=== PATIENT | female | born 1960 | race Caucasian/White ===

== ENCOUNTER → 2016-10-12 | Outpatient (CLI) | payer OTHER ==
[~2016-10-12] MED LIST: ADV250INH INH; ADVI200C PO; AZIT250T3 PO; BUSP10TA PO; FOLI1TAB2 PO; LACT20EL PO; LISI10TA4 PO; LORA10TA2 PO; METO25TAB PO; PANT40TA2 PO; TYLE325T5 PO; VITMTA PO; XIFA550T PO
--- NOTE | 2016-10-12 11:08 | REP ---
RIGHT UPPER QUADRANT SONOGRAPHY: HISTORY: Alcoholic cirrhosis of the liver. COMPARISON STUDY: November 03, 2015. FINDINGS: Scanning through right upper quadrant of the abdomen demonstrates a normal sized thin-walled gallbladder with a non-shadowing 0.5 cm polyp on the non-dependent wall. There are foci of adenomyomatosis in the gallbladder wall. These appear to be unchanged. There is evidence of fatty infiltration of the liver. The common bile duct is at the upper range of normal measuring 0.66 cm. The main portal vein measures 14 mm in AP dimension. Its Doppler flow velocity is 29.6 cm/s. There is no evidence of ascites. No pancreatic abnormality is observed. No right renal abnormality is seen. The right kidney measures 10.5 x 5.6 x 5.4 cm. IMPRESSION: Small gallbladder polyp. Evidence of a mild adenomyomatosis of the gallbladder wall. No stone is seen. Evidence of fatty infiltration of the liver. No focal liver mass lesion noted. Signed by Karsten Jeronimo MD 10/12/2016 08:56 P
== END ==
LOC: M RAD 08:42
PROVIDERS: ATTEND Internal Medicine Gastroenterology
DX: K70.30 Alcoholic cirrhosis of liver without ascites (principal)

== ENCOUNTER 2016-10-27 03:19 | Inpatient (IN) | payer OTHER ==
[~2016-10-27] VITALS: Ht 162.6 cm; Wt 61.0 kg
[2016-10-27] MEDS ORDERED: MAALOX 30 ML SUSP *UDC PO PRN (07:45)
[2016-10-27] MEDS ORDERED: MOM 30ML SUSPENSION UDC PO PRN (07:45)
[2016-10-27] MEDS ORDERED: LOSA100T36 PO (07:59)
[2016-10-27] MEDS ORDERED: MAGN400T5 PO (07:59)
[2016-10-27] MEDS ORDERED: PROP1TAB29 PO (07:59)
[2016-10-27] MEDS ORDERED: OMEP40CA2 PO (07:59)
[2016-10-27] MEDS ORDERED: LABE20TAB PO (07:59)
[2016-10-27] MEDS ORDERED: NICO14DI20 TD (08:00)
[2016-10-27 09:51] VITALS: BP 135/85
[2016-10-27] MEDS ORDERED: LORATADINE 10 MG TAB PO PRN (10:45)
[2016-10-27] MEDS ORDERED: ALBUTEROL 90 MCG/ACT 8GM HFA INHALER INH PRN (10:45)
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
[2016-10-27] MEDS: MAGNESIUM OXIDE 400 MG TAB (MAG-OX) PO SCH (11:31)
[2016-10-27] MEDS: busPIRone 10 MG TAB PO SCH ×2 (11:31→15:57)
[2016-10-27] MEDS: OMEPRAZOLE 20 MG CAP PO SCH (11:31)
[2016-10-27] MEDS: ADVAIR DISKUS 250/50 INH PWD INH SCH ×2 (11:32→22:01)
[2016-10-27] MEDS: ACETAMINOPHEN TAB 650MG DOSE (2X325MG) PO PRN (12:46)
[2016-10-27] MEDS ORDERED: BACL10TA2 PO (13:59)
[2016-10-27] MEDS ORDERED: LORazepam 1 MG TAB PO PRN (14:00)
[2016-10-27] MEDS: rifAXIMin 550 MG TAB (XIFAXAN) PO SCH ×2 (15:56→22:03)
[2016-10-27] MEDS: SERTRALINE HCL 50 MG TAB PO SCH (15:57)
[2016-10-27] MEDS: LORazepam 1 MG TAB PO SCH ×2 (16:45→22:01)
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
[2016-10-27 18:00] VITALS: BP 136/85
[2016-10-27] MEDS: LOSARTAN 50 MG TAB PO SCH (22:02)
[2016-10-28 07:10] VITALS: BP 118/88
[2016-10-28] MEDS: OMEPRAZOLE 20 MG CAP PO SCH (08:17)
[2016-10-28] MEDS: MAGNESIUM OXIDE 400 MG TAB (MAG-OX) PO SCH (08:17)
[2016-10-28] MEDS: ADVAIR DISKUS 250/50 INH PWD INH SCH ×2 (08:18→22:04)
[2016-10-28] MEDS: rifAXIMin 550 MG TAB (XIFAXAN) PO SCH (08:18)
[2016-10-28] MEDS: SERTRALINE HCL 50 MG TAB PO SCH (08:18)
[2016-10-28] MEDS: LORazepam 1 MG TAB PO SCH ×3 (08:18→22:02)
[2016-10-28 09:02] LABS: BASO % 0.4 % (0.0-1.0); EOS # 0.2 K/mm3 (0.0-0.50); EOS % 2.9 % (0.0-3.0); LARGE UNSTAINED CELL # 0.1 K/mm3 (0.0-0.4); LARGE UNSTAINED CELL % 1.2 % (0.0-4.0); LYMPH # 2.1 K/mm3 (1.5-4.5); LYMPH % 28.1 % (24.0-44.0); MEAN CORPUSCULAR HEMOGLOBIN 32.1 pg (27.0-33.0); MEAN CORPUSCULAR HGB CONC 34.8 g/dl (32.0-36.5); MEAN CORPUSCULAR VOLUME 92.3 fl (80.0-96.0); MONO # 0.4 K/mm3 (0.0-0.8); MONO % 5.9 % (0.0-5.0); NEUTROPHILS # 4.3 K/mm3 (1.8-7.7); NEUTROPHILS % 61.4 % (36.0-66.0); PLATELET COUNT, AUTOMATED 174 k/mm3 (150-450); RED CELL DISTRIBUTION WIDTH 12.3 % (11.5-14.5)
[2016-10-28 09:16] LABS: ALBUMIN 3.7 GM/DL (3.2-5.2); ALBUMIN/GLOBULIN RATIO 1.03 (1.00-1.93); ALKALINE PHOSPHATASE 183 U/L (45-117); ALT/SGPT 25 U/L (12-78); ANION GAP 7 MEQ/L (8-16); AST/SGOT 22 U/L (15-37); BILIRUBIN,TOTAL 0.9 MG/DL (0.2-1.0); BLOOD UREA NITROGEN 12 MG/DL (7-18); CALCIUM LEVEL 8.6 MG/DL (8.5-10.1); CARBON DIOXIDE LEVEL 28 MEQ/L (21-32); CHLORIDE LEVEL 96 MEQ/L (98-107); CREATININE FOR GFR 0.83 MG/DL (0.55-1.02); GLOMERULAR FILTRATION RATE > 60.0 (>51); GLUCOSE, FASTING 119 MG/DL (70-105); POTASSIUM SERUM 4.2 MEQ/L (3.5-5.1); SODIUM LEVEL 131 MEQ/L (136-145); TOTAL PROTEIN 7.3 GM/DL (6.4-8.2)
--- NOTE | 2016-10-28 11:47 | IPNPDOC ---
Subjective Date Seen The patient was seen on 10/28/16. Subjective Chief Complaint/HPI The patient is a 56-year-old female admitted with a reason for visit of General Anxiety With Panic Attacks. Events since last encounter Have reconciled meds through Pharmacy and discussed with the Pt Records pending from Dr Srinivasan. Pulmonary: Denies: Cough, Dyspnea Cardiovascular: Denies: Chest Pain, Lt Headedness, Orthopnea, Palpitations, Paroxysmal Noc. Dyspnea Gastrointestinal: Denies: Abdominal Pain, Constipation, Diarrhea, Nausea, Vomiting Genitourinary: Denies: Dysuria, Frequency, Incontinence, Retention Objective Physical Examination General Exam: Positive: Alert Eye Exam: Positive: PERRLA ENT Exam: Positive: Atraumatic Chest Exam: Positive: Clear to auscultation, Normal air movement Heart Exam: Positive: Normal S1, Normal S2, Rate Normal, Regular Rhythm, Negative: Murmurs, Rubs Skin Exam: Positive: Nl turgor and temperature Assessment /Plan Problems (1) Hypertension Status: Chronic Problem Text: * Continue with Cozaar with hold parameters * BP controlled. * No additional changes at this time. (2) GERD (gastroesophageal reflux disease) Status: Chronic Problem Text: * Cont PPI (3) Asthma Status: Chronic Problem Text: * Advair/Albuterol prn (4) Allergic rhinitis Status: Chronic Problem Text: * Loratadine prn (5) Alcoholic cirrhosis Status: Chronic Response to Treatment: Stable Problem Text: * Xifaxan was apparently discontinued as per Dr Srinivasan at the end of September. * Records requested. * Ammonia WNL. * Monitor. Plan/VTE VTE Prophylaxis Ordered?: No (ambulatory) VS, I&O, 24H, [facility] Vital Signs/I&O Vital Signs Date Time Temp Pulse Resp B/P Pulse Ox O2 Delivery O2 Flow Rate FiO2 10/28/16 07:10 97.2 84 18 118/88 10/27/16 18:00 18 10/27/16 09:51 Room Air Laboratory Data 24H LABS Laboratory Tests 2 10/27/16 14:06: Ammonia 17 10/28/16 08:36: Blood Urea Nitrogen 12, Creatinine 0.83, Sodium Level 131L, Potassium Level 4.2 , Chloride Level 96L, Carbon Dioxide Level 28, Calcium Level 8.6, Aspartate Amino Transf (AST/SGOT) 22, Alanine Aminotransferase (ALT/SGPT) 25, Alkaline Phosphatase 183H, Total Bilirubin 0.9, Total Protein 7.3, Albumin 3.7, Albumin/ Globulin Ratio 1.03, Anion Gap 7L, White Blood Count 7.0, Red Blood Count 4.18, Hemoglobin 13.4, Hematocrit 38.5, Mean Corpuscular Volume 92.3, Mean Corpuscular Hemoglobin 32.1, Mean Corpuscular Hemoglobin Concent 34.8, Red Cell Distribution Width 12.3, Platelet Count 174, Neutrophils (%) (Auto) 61.4, Lymphocytes (%) (Auto) 28.1, Monocytes (%) (Auto) 5.9H, Eosinophils (%) (Auto) 2.9, Basophils (%) (Auto) 0.4, Neutrophils # (Auto) 4.3, Lymphocytes # (Auto) 2.1, Monocytes # (Auto) 0.4, Eosinophils # (Auto) 0.2, Basophils # (Auto) 0.0, Glomerular Filtration Rate > 60.0, Large Unclassified Cells # 0.1, Large Unclassified Cells % 1.2 CBC/BMP Laboratory Tests 10/28/16 08:36 Calcium Level 8.6, Aspartate Amino Transf (AST/SGOT) 22, Alanine Aminotransferase (ALT/SGPT) 25, Alkaline Phosphatase 183 H, Total Bilirubin 0.9 , Total Protein 7.3, Albumin 3.7, Red Blood Count 4.18, Mean Corpuscular Volume 92.3, Mean Corpuscular Hemoglobin 32.1, Mean Corpuscular Hemoglobin Concent 34.8 , Red Cell Distribution Width 12.3, Neutrophils (%) (Auto) 61.4, Lymphocytes (% ) (Auto) 28.1, Monocytes (%) (Auto) 5.9 H, Eosinophils (%) (Auto) 2.9, Basophils (%) (Auto) 0.4, Neutrophils # (Auto) 4.3, Lymphocytes # (Auto) 2.1, Monocytes # (Auto) 0.4, Eosinophils # (Auto) 0.2, Basophils # (Auto) 0.0 Kiya Benton Oct 28, 2016 11:47
[2016-10-28] MEDS ORDERED: NICOTINE 21MG/24HR 1 EA TRANSDERMAL TD ONE (17:00)
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
[2016-10-28 18:00] VITALS: BP 141/78
[2016-10-28] MEDS: traZODone 50 MG TAB PO PRN (22:02)
[2016-10-28] MEDS: LOSARTAN 50 MG TAB PO SCH (22:04)
[2016-10-29 06:32] VITALS: BP 142/98
[2016-10-29] MEDS: NICOTINE 21MG/24HR 1 EA TRANSDERMAL TD SCH (08:52)
[2016-10-29] MEDS: LORazepam 1 MG TAB PO SCH ×3 (08:52→21:34)
[2016-10-29] MEDS: ADVAIR DISKUS 250/50 INH PWD INH SCH ×2 (08:52→21:34)
[2016-10-29] MEDS: OMEPRAZOLE 20 MG CAP PO SCH (08:52)
[2016-10-29] MEDS: SERTRALINE HCL 50 MG TAB PO SCH (08:54)
[2016-10-29] MEDS ORDERED: INFLUENZA QUADRIVALENT PF VACCINE 0.5ML SYRINGE/VIAL (90686) IM ONE (09:00)
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
[2016-10-29] MEDS: ACETAMINOPHEN TAB 650MG DOSE (2X325MG) PO PRN (15:45)
[2016-10-29 18:00] VITALS: BP 140/90
[2016-10-29] MEDS: LOSARTAN 50 MG TAB PO SCH (21:37)
[2016-10-29] MEDS: traZODone 50 MG TAB PO PRN (21:38)
[2016-10-30] MEDS ORDERED: cloNIDine 0.1 MG TAB PO ONE (06:30)
[2016-10-30] MEDS ORDERED: hydrOXYzine 10 MG TAB PO PRN (06:30)
[2016-10-30 06:40] VITALS: BP 170/102
[2016-10-30] MEDS ORDERED: IBUPROFEN 800 MG TAB PO ONE (06:45)
[2016-10-30] MEDS: SERTRALINE HCL 50 MG TAB PO SCH (08:31)
[2016-10-30] MEDS: LORazepam 1 MG TAB PO SCH ×3 (08:31→21:20)
[2016-10-30] MEDS: ADVAIR DISKUS 250/50 INH PWD INH SCH ×2 (08:31→21:20)
[2016-10-30] MEDS: OMEPRAZOLE 20 MG CAP PO SCH (08:31)
[2016-10-30] MEDS: NICOTINE 21MG/24HR 1 EA TRANSDERMAL TD SCH (08:33)
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
[2016-10-30 09:30] VITALS: BP 133/91
[2016-10-30] MEDS ORDERED: LIDOCAINE 5% (LIDODERM) PATCH TD ONE (10:15)
[2016-10-30 18:00] VITALS: BP 123/89
[2016-10-30 18:44] VITALS: BP 133/91
[2016-10-30 21:24] VITALS: BP 140/90
[2016-10-30] MEDS: LOSARTAN 50 MG TAB PO SCH (21:24)
[2016-10-30] MEDS: ACETAMINOPHEN TAB 650MG DOSE (2X325MG) PO PRN (22:14)
[2016-10-31 06:21] VITALS: BP 153/85
[2016-10-31] MEDS: LORazepam 1 MG TAB PO SCH (08:20)
[2016-10-31] MEDS: OMEPRAZOLE 20 MG CAP PO SCH (08:20)
[2016-10-31] MEDS: SERTRALINE HCL 50 MG TAB PO SCH (08:20)
[2016-10-31] MEDS: NICOTINE 21MG/24HR 1 EA TRANSDERMAL TD SCH (08:20)
[2016-10-31] MEDS: ACETAMINOPHEN TAB 650MG DOSE (2X325MG) PO PRN (08:22)
[2016-10-31] MEDS: ADVAIR DISKUS 250/50 INH PWD INH SCH (08:22)
[2016-10-31] MEDS ORDERED: LORazepam 0.5 MG TAB PO STA (09:46)
[2016-10-31] MEDS ORDERED: SERT50TA PO (10:24)
[2016-10-31] MEDS ORDERED: HYDR10T PO (10:24)
[2016-10-31] MEDS ORDERED: TRAZO50TA PO (10:24)
[2016-10-31] MEDS ORDERED: CLAR1TAB2 PO (10:24)
[2016-10-31] MEDS ORDERED: MILKSUS PO (11:41)
[2016-10-31] MEDS ORDERED: MYLASUS16 PO (11:41)
--- NOTE | 2016-10-31 14:10 | DS.PDOC ---
[facility] Discharge Summary Discharge Summary DATE OF ADMISSION: Oct 27, 2016 at 07:32 DATE OF DISCHARGE: Oct 31, 2016 at 12:40 DISCHARGE DIAGNOSES: 1. Major Depressive Disorder 2. Substance Abuse (marijuana) REASON FOR ADMISSION: She was admitted on October 27 for having suicidal ideation , auditory command hallucinations that were telling her to kill herself nad severe depression CONSULTANTS INVOLVED: None for Psychiatry TREATMENT AND PROGRESS ON THE UNIT : She was treated with Zoloft 50 mgs. PO QD for depression, anxiety and PTSD because she had verbalized severe that she was exposed to very traumatic situations through her life. Receive treatment with Ativan 1 mg PO TID for anxiety/agitation because she had tested positive for amphetamines, that she denied using, (could have been laced to marijuana). Ativan was given to avoid her going through withdrawals. she also received Atarax for anxiety, trazodone for sleep. She had a good response for treatment HOSPITAL COURSE: Upon admission she was severely depressed, cried easily and she was having physical discomfort because she was experiencing muscle spasms and pain in her back. She verbalized having suicidal ideation and hearing voices that were telling her to kill herself. Her mood and affect were extremely depressed, her speech was slow, soft spoken and she didn't have circumstantiality or tangentiality. Her thought process was linear but her thought content was positive for command auditory hallucinations and suicidal ideation. Her judgment and insight were impaired. Her attention span and concentration were very poor, she was oriented to herself date and time, to people and place but not date and time. Her recent and remote memory were intact. DISCHARGE ASSESSMENT: Stable MENTAL STATUS EXAMINATION ON DISCHARGE: Patient is a 56-year old female, who is cooperative with interview, friendly, with good eye contact and [place]. Speech is normal. Language skills are fair. Thought processes including: Linear, coherent and goal oriented. Thought content: Negative for suicidal thoughts, homicidal thoughts, delusional thoughts and negative for auditory or visual hallucinations. Abstract reasoning, and computation: Fair. Description of associations: Low loosening of associations. Description of abnormal or psychotic thoughts: Not present Judgment: Improved. Insight: Improved. Orientation to oriented 3. Recent and remote memory: Intact. Attention span and concentration: Good. Language: Normal. Fund of knowledge: Full. Mood: "I feel very happy". Affect: Brighter, euthymic. MEDICATIONS ON DISCHARGE: -Zoloft 50 mg by mouth daily at bedtime for depression and anxiety -Desyrel 50 mg by mouth daily at bedtime for insomnia -Atarax 10 mg by mouth twice a day when necessary for anxiety PLAN/FOLLOWUP ARRANGEMENTS: . The amount of time spent in the coordination of care for this patient was approximately 30 minutes. Vital Signs/I&Os Vital Signs Date Time Temp Pulse Resp B/P Pulse Ox O2 Delivery O2 Flow Rate FiO2 10/31/16 06:21 97.0 86 20 153/85 10/30/16 18:44 18 Room Air Medications Scheduled Baclofen (Baclofen) 10 Mg Tab 10 MG PO DAILY SPASMS (Reported) Labetalol HCl (Labetalol HCl) 200 Mg Tab 200 MG PO BID HTN (Reported) Losartan Potassium (Losartan Potassium) 100 Mg Tab 100 MG PO QHS HTN (Reported) Omeprazole (Omeprazole) 40 Mg Cap 40 MG PO DAILY GERD (Reported) Propranolol HCl (Propranolol HCl) 20 Mg Tab 20 MG PO BID HTN (Reported) Salmeterol/Fluticasone (Advair Diskus 250-50 Mcg/Dose) 14 Puff/Inhaler Aerp 1 PUFF INH BID bronchitis (Reported) Sertraline Hcl (Sertraline HCl) 50 Mg Tab #10 50 MG PO DAILY MOOD Scheduled PRN Aluminum/Magnesium/Simeth (Mylanta 200-200-20 mg/5Ml) 1 Lizette Lizette 30 ML PO Q4HP PRN PRN HEARTBURN/INDIGESTION (Reported) Hydroxyzine HCl (Hydroxyzine HCl) 10 Mg Tab #10 10 MG PO BIDP PRN PRN ANXIETY/ AGITATION Loratadine (Claritin) 10 Mg Tab #10 10 MG PO DAILY PRN PRN ALLERGIES Milk Of Magnesia (Milk of Magnesia) 1,200 Mg/15 Ml Lizette 30 ML PO DAILYPRN PRN PRN CONSTIPATION (Reported) Trazodone HCl (Trazodone HCl) 50 Mg Tab #10 50 MG PO QHSP PRN PRN INSOMNIA Allergies Coded Allergies: No Known Allergies (Unverified , 11/02/15) BREE TINOCO MD Oct 31, 2016 14:10
== END 2016-10-31 12:40 | disposition home or self-care (01) | DRG 754 ==
LOC: EDBD 03:19 → M ED 04:56 → M ED INP 07:32 → M PSY 09:44
PROVIDERS: ADMIT Psychiatry & Neurology Child & Adolescent Psychiatry; ATTEND Psychiatry & Neurology Psychiatry
DX: F32.9 Major depressive disorder, single episode, unspecified (principal); J44.9 Chronic obstructive pulmonary disease, unspecified; R45.851 Suicidal ideations; R44.0 Auditory hallucinations; F12.10 Cannabis abuse, uncomplicated; F17.210 Nicotine dependence, cigarettes, uncomplicated; M54.5 Low back pain; F10.21 Alcohol dependence, in remission; J30.9 Allergic rhinitis, unspecified; K21.9 Gastro-esophageal reflux disease without esophagitis; I10 Essential (primary) hypertension; Z79.899 Other long term (current) drug therapy

== ENCOUNTER → 2017-03-30 | Outpatient (CLI) | payer OTHER ==
[~2017-03-30] MED LIST changes: +ACET50TAOT PO; +ALBU17IN INH; +AZIT-12 PO; -AZIT250T3 PO; +BACL10TA2 PO; +CLAR1TAB2 PO; -FOLI1TAB2 PO; +FOLI1TAB4 PO; +FOSA70TA PO; +HYDR-643 PO; +HYDR50TA70 PO; +LABE20TAB PO; +LOSA100T36 PO; +MAGN400T5 PO; +MILKSUS PO; +MULT1TAB10 PO; +MYLASUS16 PO; +NICO14DI20 TD; +NICO7DIS2 TD; +OMEP40CA2 PO; +PROP1TAB29 PO; +SERT50TA PO; +TRAZO50TA PO; +VITA100067 PO
--- NOTE | 2017-04-20 00:48 | ECWPNPC ---
PATIENT NAME: DARLENE BARNETT : 1960 GENDER: FEMALE VISIT DATE: 03/30/2017 DISCHARGE DATE: 03/30/17 1232 VISIT LOCKED DATE TIME: PHYSICIAN: GERSON CRUZ RESOURCE: GERSON CRUZ REASON FOR APPOINTMENT 1. LUMBAR CANAL STENOSIS HISTORY OF PRESENT ILLNESS NEW PATIENT CONSULT: 56 Y/O FEMALE REFERRED BY DR. AQUINO ,[facility] FOR CHRONIC LOW BACK PAIN.LOW BACK PAIN BEGAN IN 1986 AFTER HEAVY LIFTING A MOTION PICTURE COMMENTATOR.THIS WAS INTERMITTENT UNTIL 2015 WHEN IT BECAME MORE SEVERE.DESCRIBES PAIN CONSTANT ACHING AND SHARP PAIN.HAS TRIALED PRINTING PRESS OPERATOR WHICH WAS HELPFUL.PAIN IS AGGREVATED WITH PROLONGED STANDING AND WALKING.PAIN IS RELIEVED SOMEWHAT WITH SITTING.RATING PAIN VAS 7/10.DENIES RECENT FEVER,ILLNESS OR WEIGHT LOSS.DENIES BOWEL OR BLADDER INCONTINENCE. WHEN DID YOUR PAIN FIRST START? . BRIEFLY DESCRIBE HOW YOUR PAIN STARTED? . HOW DOES YOUR PAIN CHANGE WITH TIME? . DOES YOUR PAIN AWAKEN YOU FROM SLEEP? . HOW MANY HOURS OF SLEEP DO YOU NORMALLY GET? . ANY DIAGNOSTIC TESTING? . FACILITY WHERE TESTS WERE DONE? ____. PAIN TREATMENT TREATMENT YES CANCER HAVE YOU EVER HAD ANY TYPE OF CANCER?NO NO. PAIN SCREENING: PATIENT HAS A COMPLAINT OF ACUTE OR CHRONIC PAIN :YES FALL RISK SCREENING: SCREENING :NO FALLS IN THE PAST YEAR LARA INVENTORY: QUESTIONNAIRE ASSESSEDTBD SCORE VALUE CALCULATED TBD CURRENT MEDICATIONS TAKING ALENDRONATE SODIUM 70 MG TABLET 1 TABLET ORALLY WEEKLY TAKING CALCIUM 600 + D 600-200 MG-UNIT TABLET 1 TABLET WITH A MEAL ORALLY TWICE A DAY TAKING LABETALOL HCL 200 MG TABLET 1 TABLET ORALLY TWICE A DAY TAKING LOSARTAN POTASSIUM 100 MG TABLET 1 TABLET ORALLY ONCE A DAY TAKING NICOTINE 14 MG/24HR PATCH 24 HOUR 1 PATCH TO SKIN TRANSDERMAL ONCE A DAY TAKING VENTOLIN HFA 108 (90 BASE) MCG/ACT AEROSOL SOLUTION 2 PUFFS NEEDED INHALATION EVERY 4 HRS TAKING VITAMIN D3 1000 UNIT TABLET 2 TABLET ORALLY ONCE A DAY TAKING MULTIVITAMIN ADULTS - TABLET 1 TAB ORALLY DAILY TAKING ADVAIR DISKUS 250-50 MCG/DOSE AEROSOL POWDER BREATH ACTIVATED 1 PUFF INHALATION DAILY TAKING HYDROXYZINE HCL 50 MG TABLET 2 TABLETS ORALLY BEFORE BEDTIME TAKING LORATADINE 10 MG TABLET 1 TABLET ORALLY ONCE A DAY NEEDED TAKING OMEPRAZOLE 40 MG CAPSULE DELAYED RELEASE 1 CAPSULE ORALLY ONCE A DAY TAKING TYLENOL EXTRA STRENGTH 500 MG TABLET 2 TABLETS NEEDED ORALLY TWICE A DAY NEEDED MEDICATION LIST REVIEWED AND RECONCILED WITH THE PATIENT PAST MEDICAL HISTORY HYPERTENSION ASTHMA CIRRHOSIS OF LIVER ARTHRITIS NECK AND BACK PAIN ALLERGIES N.K.D.A. SURGICAL HISTORY TUBAL LIGATION 1982 EGD AND COLONOSCOPY 2015 FAMILY HISTORY FATHER: , DIAGNOSED WITH HEART DISEASE IN 3 MOTHER: 3 BROTHER(S) , 4 SISTER(S) . 2 SON(S) , 1 DAUGHTER(S) - HEALTHY. 1 SISTER KILLED IN FIRE1 SON IN CAR ACCIDENT. SOCIAL HISTORY GENERAL: TOBACCO USE ARE YOU A:CURRENT SMOKER HOW MANY CIGARETTES A DAY DO YOU SMOKE?6-10 PATIENT COUNSELED ON THE DANGERS OF TOBACCO USE AND URGED TO QUIT:03/30/2017 PATIENT IS CURRENTLY TRYING TO QUIT AND IS WEARING NICOTINE PATCHES ARE YOU INTERESTED IN QUITTING?READY TO QUIT COUNSELED THE PATIENT ON TOBACCO USE, CESSATION [id number]/21/2017 CURRENTLY IN PROCESS OF QUITTING RECREATIONAL DRUG USE DRUG USE?NO VOODOO [id number] [employer] LANGUAGE LANGUAGES SPOKEN:SLOVENIAN LEARNING BARRIERS / SPECIAL NEEDS BARRIERS TO LEARNING?NO HEARING IMPAIRED?NO VISION IMPAIRED?YES GLASSES FOR READING COGNITIVELY IMPAIRED?NO READINESS TO LEARN?YES LEARNING PREFERENCES?NO LEARNING CAPABILITIES PRESENT?YES EMOTIONAL BARRIERS?NO SPECIAL DEVICES?NO BI MANAGER NEEDED?NO PAIN CLINIC PFS, CLERGY, PUBLIC HEALTH REFERRALS PFS REFERRAL NEEDED?NO CLERGY REFERRAL NEEDED?NO PUBLIC HEALTH REFERRAL NEEDED?NO WAS THE PROVIDER NOTIFIED OF ANY PERTINENT INFO?NO HAS THE PATIENT BEEN EDUCATED REGARDING HIS/HER PLAN OF CARE?YES HAS THE PATIENT BEEN EDUCATED REGARDING PAIN, THE RISK FOR PAIN, THE IMPORTANCE OF EFFECTIVE PAIN MANAGEMENT, AND THE PAIN ASSESSMENT PROCESS?YES PATIENT: ____. [facility] DIRECTIVES HEALTH CARE PROXY?NO WOULD YOU LIKE MORE INFORMATION?NO DO YOU HAVE A DNR?NO WOULD YOU LIKE MORE INFORMATION?NO LIVING WILL?NO WOULD YOU LIKE MORE INFORMATION?NO POWER OF SCANNING COORDINATOR?NO WOULD YOU LIKE MORE INFORMATION?NO REVIEW OF SYSTEMS REVIEWED BY: PROVIDER: GERSON STARK . CONSTITUTIONAL: ANY CHANGE IN YOUR MEDICAL CONDITION? NO . CHILLS NO . FEVER NO . INFECTION: DO YOU HAVE NEW INFECTIONS? NO . DO YOU HAVE HISTORY OF MRSA? NO . MUSCULOSKELETAL: ANY NEW PATTERNS OF PAIN OR NUMBNESS? NO . SYTEMIC LUPUS NO . GASTROENTEROLOGY: ANY NEW CHANGE IN BOWEL CONTROL? NO . BARRETTS ESOPHAGUS NO . CIRRHOSIS YES . HEPATITIS NO . LIVER FAILURE NO . ACID REFLUX YES . UNEXPLAINED WEIGHT LOSS NO . GENITOURINARY: ANY NEW CHANGE IN BLADDER CONTROL? NO . IS THERE A CHANCE YOU COULD BE ? NO . HEMATOLOGY/LYMPH: DO YOU TAKE ANY BLOOD THINNERS? (FOR EXAMPLE- COUMADIN, PLAVIX, AGGRENOX, PLATEL, PRADAXA, OR XARELTO) NO . WHEN WAS YOUR LAST DOSE? DATE: TIME: . LOW PLATELET COUNT NO . SICKLE CELL DISEASE NO . VON WILLIEBRANDS NO . FACTOR V LEIDEN NO . THALLASEMIA NO . ANEMIA NO . EASY BRUISING NO . NEUROLOGY: HAVE YOU FALLEN IN THE PAST 6 MONTHS? NO . ANY NEW EXTREMITY NUMBNESS OR WEAKNESS? NO . HEAD INJURY NO . DEMENTIA NO . CEREBRAL PALSY NO . MULTIPLE SCLEROSIS NO . DIZZINESS NO . HEADACHE NO . STROKES NO . VERTIGO NO . CARDIOLOGY: DO YOU HAVE A PACEMAKER OR DEFIBRILLATOR? NO . ANGINA NO . HEART ATTACK NO . HEART SURGERY NO . CONGESTIVE HEART FAILURE/FLUID OVERLOAD NO . CHEST PAIN NO . HIGH BLOOD PRESSURE ON MEDICATION(S) . IRREGULAR HEART BEAT NO . RESPIRATORY: HAVE YOU BEEN SICK IN THE PAST WEEK? NO . FEVER NO . FLU LIKE SYMPTOMS? NO . CPAP NO . BYPAP NO . ASTHMA YES . EMPHYSEMA NO . CHRONIC LUNG DISEASES NO . SHORTNESS OF BREATH ON EXERTION YES . DO YOU USE ANY TYPE OF TOBACCO (SMOKE, SMOKELESS, CHEW)? YES . COUGH NO . SNORING NO . INTEGUMENTARY: DO YOU HAVE ANY RASHES OR OPEN SORES? NO . ALLERGIC/IMMUNO: ARE YOU ALLERGIC TO SHELLFISH OR IV DYE? NO . ANY NEW ALLERGIES? NO . PSYCHIATRIC: DO YOU HAVE THOUGHTS OF HURTING YOURSELF OR SOMEONE ELSE? NO . ARE YOU ABUSED, NEGLECTED, OR IN AN UNSAFE ENVIRONMENT? NO . ENDOCRINOLOGY: ARE YOU DIABETIC? NO . THYROID DISORDER NO . OTHER: DO YOU NEED ANY PRESCRIPTIONS? NO . IF YES, PLEASE LIST: ____ . ANY NEW PROBLEMS WITH YOUR MEDICATIONS? NO . WHEN DID YOU LAST EAT? ____ . WHEN DID YOU LAST DRINK? ____ . WHAT DID YOU LAST DRINK? ____ . NAME OF PERSON DRIVING YOU HOME? ____ . DO YOU HAVE ANY OTHER QUESTIONS OR CONCERNS NO . VITAL SIGNS WT 148 LBS, HT 51 IN, BMI 40.00 INDEX, BP 180/114 MM HG, REPEAT BP 160/98 MANUAL LEFT ARM, HR 71 /MIN, RR 18 /MIN, TEMP 98.1 F, OXYGEN SAT % 94%, NA INITIALS AW 1119. EXAMINATION GENERAL EXAMINATION: GENERAL APPEARANCE:COMFORTABLE. PSYCHAFFECT NORMAL. NECK:TRACHEA MIDLINE. NO CERVICAL OR SUPRACLAVICULAR LYMPHADENOPATHY NOTED. LUNGS:LUNG CAMARA ARE CLEAR TO AUSCULTATION BILATERALLY. GOOD MOVEMENT OF AIR. HEART:S1, S2 IN A REGULAR RATE AND RHYTHM. NO SIGNIFICANT MURMURS, RUBS OR GALLOPS NOTED. ABDOMEN:SOFT, NON-TENDER, NO ORGANOMEGALY, BOWEL SOUNDS ARE NORMAL. LUMBAR SACRAL SPINEMUSCLE STRENGTH TESTING 5/5 BILATERAL, PALPATION: NEGATIVE FOR PAIN OVER L/S SPINE. NEGATIVE FOR PAIN OVER L/S PARASPINALS.SPECIFIC POINT TENDERNESS OVER BILATERAL SIJ.. DIAGNOSTIC TESTS REVIEWEDMRI L/S [id number]-REVIEWED. 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 SIJ, PATIENT WAS ADVISED TO START A WALKING PROGRAM TO STRENGTHEN LUMBAR PARASPINAL MUSCLES AND IMPROVE MOBILITY. THEY WERE ADVISED THAT THIS WILL IMPROVE WEIGHT LOSS AND ALSO DEPRESSION/FIBROMYALGIA SYMPTOMS. ADVISED TO WALK 10 MINUTES EVERY OTHER DAY ON A FLAT SURFACE. EMPHASIZED THE IMPORTANCE OF DOING THIS CONSISTANTLY AND NOT SPORATICALLY TO AVOID INJURY. STRONG ADVISED NOT TO DO MORE THAN 10 MINUTES EVERY OTHER DSY FOR THE FIRST 4 WEEKS. PREVENTIVE MEDICINE PAIN CLINIC TEACHING: PROCEDURE TEACHING PRE-PROCEDURE TEACHING DONE. ADDITIONAL INFORMATION GIVEN. QUESTIONS ANSWERED AND PATIENT VERBALIZES UNDERSTANDING. PATIENT'S DAUGHTER ALSO VERBALIZES UNDERSTANDING.. PROCEDURE CODES FA211 ESTABILISHED PATIENT [facility] CHARGE DISPOSITION & COMMUNICATION FOLLOW UP 2WK POST (REASON: BILAT. SIJ) ELECTRONICALLY SIGNED BY MI BERGERON ON 04/19/2017 AT 07:51 PM EDT DISCLAIMER : THIS IS A VISIT SUMMARY EXTRACTED FROM THE [employer] CHART. IT IS NOT A COPY OF THE [employer] PROGRESS NOTE. SHANTELLE
== END ==
LOC: M PAIN 11:00
PROVIDERS: ATTEND Nurse Practitioner Family
DX: M46.1 Sacroiliitis, not elsewhere classified (principal); M12.88 Other specific arthropathies, not elsewhere classified, other specified site; M54.5 Low back pain; G89.29 Other chronic pain; I10 Essential (primary) hypertension; J45.909 Unspecified asthma, uncomplicated; F17.210 Nicotine dependence, cigarettes, uncomplicated

== ENCOUNTER → 2017-04-04 | Outpatient (CLI) | payer OTHER ==
[2017-04-04 15:21] LABS: BASO % 0.6 % (0.0-1.0); EOS # 0.3 10^3/uL (0.0-0.50); IMMATURE GRANULOCYTE % 0.3 % (0-0); LYMPH # 2.4 10^3/uL (1.5-4.5); LYMPH % 37.7 % (24.0-44.0); MEAN CORPUSCULAR HEMOGLOBIN 31.6 pg (27.0-33.0); MEAN CORPUSCULAR HGB CONC 35.5 g/dl (32.0-36.5); MEAN CORPUSCULAR VOLUME 89.2 fl (80.0-96.0); MONO # 0.7 10^3/uL (0.0-0.8); MONO % 11.1 % (0.0-5.0); NEUTROPHILS % 46.3 % (36.0-66.0); PLATELET COUNT, AUTOMATED 174 10^3/uL (150-450); RED CELL DISTRIBUTION WIDTH 11.6 % (11.5-14.5); WHITE BLOOD COUNT 6.5 10^3/uL (4.0-10.0)
[2017-04-04 15:38] LABS: INR 1.02
[2017-04-04 16:40] LABS: ALBUMIN 3.9 GM/DL (3.2-5.2); ALBUMIN/GLOBULIN RATIO 1.08 (1.00-1.93); ALKALINE PHOSPHATASE 144 U/L (45-117); ALT/SGPT 21 U/L (12-78); ANION GAP 8 MEQ/L (8-16); AST/SGOT 19 U/L (15-37); BILIRUBIN,TOTAL 0.7 MG/DL (0.2-1.0); BLOOD UREA NITROGEN 11 MG/DL (7-18); CALCIUM LEVEL 8.7 MG/DL (8.5-10.1); CARBON DIOXIDE LEVEL 29 MEQ/L (21-32); CHLORIDE LEVEL 94 MEQ/L (98-107); CREATININE FOR GFR 0.74 MG/DL (0.55-1.02); GLOMERULAR FILTRATION RATE > 60.0 (>51); GLUCOSE, FASTING 109 MG/DL (70-105); POTASSIUM SERUM 4.5 MEQ/L (3.5-5.1); SODIUM LEVEL 131 MEQ/L (136-145); TOTAL PROTEIN 7.5 GM/DL (6.4-8.2)
== END ==
LOC: M LAB 14:32
PROVIDERS: ATTEND Internal Medicine Gastroenterology
DX: K70.30 Alcoholic cirrhosis of liver without ascites (principal)

== ENCOUNTER → 2017-04-06 | Outpatient (CLI) | payer OTHER ==
--- NOTE | 2017-04-07 02:24 | REP ---
Clinical: Cirrhosis. Comparison: 10/12/2016. Technique: Real time quiroz scale ultrasound examination using curved array transducer. Findings: The liver demonstrates a coarsened echotexture with nodular contour consistent with cirrhosis. No focal hepatic lesion identified. Visualized portions of the pancreas are unremarkable. The gallbladder is normal and without gallstones, wall thickening, or pericholecystic fluid. Previously identified small gallbladder polyp and benign adenomyomatosis are not well appreciated on current examination. There is no evidence for biliary ductal dilatation and the common bile duct measures 4.9 mm diameter. The right kidney is normal in reniform shape without hydronephrosis and measures 10.2 x 6.3 x 5.4 cm. No ascites. Impression: Coarsened hepatic echotexture consistent with cirrhosis and hepatocellular disease. Signed by Meño Gibson MD 04/07/2017 02:16 A
== END ==
LOC: M RAD 07:58
PROVIDERS: ATTEND Internal Medicine Gastroenterology
DX: K74.60 Unspecified cirrhosis of liver (principal)

== ENCOUNTER 2017-04-17 11:59 | Outpatient (CLI) | payer OTHER ==
[~2017-04-17] VITALS: Ht 154.9 cm; Wt 66.7 kg
[2017-04-17] MEDS ORDERED: NS 1,000 ML IV ONE (12:15)
[2017-04-17] MEDS ORDERED: PROPOFOL 200 MG/20 ML VIAL As Ordered ONE (13:07)
--- NOTE | 2017-04-17 13:35 | ROOR ---
Patient Name: Tracy Frey Procedure Date: 04/17/2017 1:16 PM Date of : 1960 Age: 56 Room: [facility] Gender: Female Note Status: Finalized Procedure: Upper GI endoscopy Indications: Cirrhosis rule out esophageal varices Providers: Beau SRINIVASAN MD Referring MD: FRANCISCO JAVIER Naranjo, Trixie Sykes MD Requesting Provider: Medicines: Monitored Anesthesia Care Complications: No immediate complications. Procedure: Pre-Anesthesia Assessment: - The heart rate, respiratory rate, oxygen saturations, blood pressure, adequacy of pulmonary ventilation, and response to care were monitored throughout the procedure. The Endoscope was introduced through the mouth, and advanced to the second part of duodenum. The upper GI endoscopy was accomplished without difficulty. The patient tolerated the procedure well. Findings: The examined esophagus was normal. A medium-sized hiatal hernia was present. The entire examined stomach was normal. The examined duodenum was normal. Impression: - Normal esophagus. - No esophageal varices seen. - Medium-sized hiatal hernia. - Normal stomach. - No gastric varices seen. - Normal examined duodenum. - No specimens collected. Recommendation: - Observe patient's clinical course. - Continue present medications. - Repeat upper endoscopy in 1 year for surveillance. - Return to my office in 6 months. Beau Srinivasan MD Beau SRINIVASAN MD 04/17/2017 1:34:27 PM This report has been signed electronically. Number of Addenda: 0 Note Initiated On: 04/17/2017 1:16 PM Estimated Blood Loss: Estimated blood loss: none.
[2017-04-17 13:44] VITALS: BP 144/102
== END 2017-04-17 13:58 | disposition home or self-care (01) ==
LOC: M OPP 11:59
PROVIDERS: ATTEND Internal Medicine Gastroenterology
DX: K74.60 Unspecified cirrhosis of liver (principal); K44.9 Diaphragmatic hernia without obstruction or gangrene; I10 Essential (primary) hypertension; R12 Heartburn; K22.8 Other specified diseases of esophagus; F41.9 Anxiety disorder, unspecified; R06.02 Shortness of breath; M54.9 Dorsalgia, unspecified; M81.0 Age-related osteoporosis without current pathological fracture; Z78.0 Asymptomatic menopausal state; J45.909 Unspecified asthma, uncomplicated; J44.9 Chronic obstructive pulmonary disease, unspecified; F17.210 Nicotine dependence, cigarettes, uncomplicated; Z79.899 Other long term (current) drug therapy

== ENCOUNTER → 2017-05-17 | Outpatient (CLI) | payer OTHER ==
--- NOTE | 2017-06-06 01:23 | ECWPNPC ---
PATIENT NAME: DARLENE BARNETT : 1960 GENDER: FEMALE VISIT DATE: 05/17/2017 DISCHARGE DATE: 05/17/17 1427 VISIT LOCKED DATE TIME: PHYSICIAN: GERSON CRUZ RESOURCE: GERSON CRUZ REASON FOR APPOINTMENT 1. REEVALUATE AFTER FALL HISTORY OF PRESENT ILLNESS HISTORY OF PRESENT ILLNESS: HERE FOR F/U OF CHRONIC LOW BACK PAIN.FELL ON 04-21-17 AND WAS HOSPITALIZED FOR OBSERVATION X 24H WITHOUT ANY ABNORMALITIES PER PATIENT.WAS SEEN BY PRIMARY CARE AFTER HOSPITALIZATION WITHOUT ANY CHANGES.DENIES INCREASE IN LOW BACK PAIN SINCE FALL.WAS SCHEDULED FOR BILATERAL SIJ AND HAD TO CANCEL DUE TO FALL AND HOSPITALIZATION.RATING LBP /RIGHT LEG PAIN 6/10 VAS.DESCRIBES PAIN INTERMITTENT SHARP AND ACHING. PAIN THE PATIENT DESCRIBES THE PAIN... FALL RISK SCREENING: SCREENING :NO FALLS IN THE PAST YEAR CURRENT MEDICATIONS TAKING ALENDRONATE SODIUM 70 MG TABLET 1 TABLET ORALLY WEEKLY TAKING CALCIUM 600 + D 600-200 MG-UNIT TABLET 1 TABLET WITH A MEAL ORALLY TWICE A DAY TAKING LABETALOL HCL 200 MG TABLET 1 TABLET ORALLY TWICE A DAY TAKING LOSARTAN POTASSIUM 100 MG TABLET 1 TABLET ORALLY ONCE A DAY TAKING NICOTINE 14 MG/24HR PATCH 24 HOUR 1 PATCH TO SKIN TRANSDERMAL ONCE A DAY TAKING VENTOLIN HFA 108 (90 BASE) MCG/ACT AEROSOL SOLUTION 2 PUFFS NEEDED INHALATION EVERY 4 HRS TAKING VITAMIN D3 1000 UNIT TABLET 2 TABLET ORALLY ONCE A DAY TAKING MULTIVITAMIN ADULTS - TABLET 1 TAB ORALLY DAILY TAKING HYDROXYZINE HCL 50 MG TABLET 2 TABLETS ORALLY BEFORE BEDTIME TAKING LORATADINE 10 MG TABLET 1 TABLET ORALLY ONCE A DAY NEEDED TAKING OMEPRAZOLE 40 MG CAPSULE DELAYED RELEASE 1 CAPSULE ORALLY ONCE A DAY TAKING TYLENOL EXTRA STRENGTH 500 MG TABLET 2 TABLETS NEEDED ORALLY TWICE A DAY NEEDED TAKING CELEXA 40 MG TABLET 0.5 TABLET ORALLY ONCE A DAY NOT-TAKING ADVAIR DISKUS 250-50 MCG/DOSE AEROSOL POWDER BREATH ACTIVATED 1 PUFF INHALATION DAILY MEDICATION LIST REVIEWED AND RECONCILED WITH THE PATIENT PAST MEDICAL HISTORY HYPERTENSION ASTHMA CIRRHOSIS OF LIVER ARTHRITIS NECK AND BACK PAIN ALLERGIES NO[ALLERGIES VERIFIED] REVIEW OF SYSTEMS REVIEWED BY: PROVIDER: GERSON STARK . CONSTITUTIONAL: ANY CHANGE IN YOUR MEDICAL CONDITION? NO . CHILLS NO . FEVER NO . INFECTION: DO YOU HAVE NEW INFECTIONS? NO . DO YOU HAVE HISTORY OF MRSA? NO . MUSCULOSKELETAL: ANY NEW PATTERNS OF PAIN OR NUMBNESS? NO . GASTROENTEROLOGY: ANY NEW CHANGE IN BOWEL CONTROL? NO . GENITOURINARY: ANY NEW CHANGE IN BLADDER CONTROL? NO . IS THERE A CHANCE YOU COULD BE ? NO . HEMATOLOGY/LYMPH: DO YOU TAKE ANY BLOOD THINNERS? (FOR EXAMPLE- COUMADIN, PLAVIX, AGGRENOX, PLATEL, PRADAXA, OR XARELTO) NO . WHEN WAS YOUR LAST DOSE? DATE: TIME: . NEUROLOGY: HAVE YOU FALLEN IN THE PAST 6 MONTHS? 10-13 HAD A FALL AT HOME STITCHES TO THE LIP AND BROKE DENTURES . ANY NEW EXTREMITY NUMBNESS OR WEAKNESS? NO . CARDIOLOGY: DO YOU HAVE A PACEMAKER OR DEFIBRILLATOR? NO . RESPIRATORY: HAVE YOU BEEN SICK IN THE PAST WEEK? NO . FEVER NO . FLU LIKE SYMPTOMS? NO . COUGH NO . INTEGUMENTARY: DO YOU HAVE ANY RASHES OR OPEN SORES? NO . ALLERGIC/IMMUNO: ARE YOU ALLERGIC TO SHELLFISH OR IV DYE? NO . ANY NEW ALLERGIES? NO . PSYCHIATRIC: DO YOU HAVE THOUGHTS OF HURTING YOURSELF OR SOMEONE ELSE? NO . ARE YOU ABUSED, NEGLECTED, OR IN AN UNSAFE ENVIRONMENT? NO . ENDOCRINOLOGY: ARE YOU DIABETIC? NO . OTHER: DO YOU NEED ANY PRESCRIPTIONS? NO . IF YES, PLEASE LIST: ____ . ANY NEW PROBLEMS WITH YOUR MEDICATIONS? NO . WHEN DID YOU LAST EAT? ____ . WHEN DID YOU LAST DRINK? ____ . WHAT DID YOU LAST DRINK? ____ . NAME OF PERSON DRIVING YOU HOME? ____ . DO YOU HAVE ANY OTHER QUESTIONS OR CONCERNS NO . VITAL SIGNS WT 147.0 LBS, HT 51 IN, BMI 39.73 INDEX, BP 146/79 MM HG, HR 78 /MIN, RR 18 /MIN, TEMP 96.5 F, OXYGEN SAT % 98%, NA INITIALS TL 1332, REVIEWED BY: KG. EXAMINATION GENERAL EXAMINATION: GENERAL APPEARANCE:COMFORTABLE. PSYCHAFFECT NORMAL. NECK:TRACHEA MIDLINE. NO CERVICAL OR SUPRACLAVICULAR LYMPHADENOPATHY NOTED. LUNGS:LUNG CAMARA ARE CLEAR TO AUSCULTATION BILATERALLY. GOOD MOVEMENT OF AIR. HEART:S1, S2 IN A REGULAR RATE AND RHYTHM. NO SIGNIFICANT MURMURS, RUBS OR GALLOPS NOTED. ABDOMEN:SOFT, NON-TENDER, NO ORGANOMEGALY, BOWEL SOUNDS ARE NORMAL. LUMBAR SACRAL SPINEMUSCLE STRENGTH TESTING 5/5 BILATERAL, PALPATION: NEGATIVE FOR PAIN OVER L/S SPINE. NEGATIVE FOR PAIN OVER L/S PARASPINALS.SPECIFIC POINT TENDERNESS OVER BILATERAL SIJ.. DIAGNOSTIC TESTS REVIEWEDMRI L/S [id number]-REVIEWED. 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 SIJ. PROCEDURE CODES FA211 ESTABILISHED PATIENT [facility] CHARGE DISPOSITION & COMMUNICATION FOLLOW UP 2WK POST (REASON: BILAT. SIJ-APPROVED ALREADY) ELECTRONICALLY SIGNED BY MI BERGERON ON 06/05/2017 AT 06:56 PM EST DISCLAIMER : THIS IS A VISIT SUMMARY EXTRACTED FROM THE [employer] CHART. IT IS NOT A COPY OF THE [employer] PROGRESS NOTE. SHANTELLE
== END ==
LOC: M PAIN 13:30
PROVIDERS: ATTEND Nurse Practitioner Family
DX: M46.1 Sacroiliitis, not elsewhere classified (principal); M12.88 Other specific arthropathies, not elsewhere classified, other specified site; G89.29 Other chronic pain; I10 Essential (primary) hypertension; Z79.899 Other long term (current) drug therapy

== ENCOUNTER → 2017-06-05 | Outpatient (CLI) | payer OTHER ==
[~2017-06-05] MED LIST changes: +BUPIVACAINE HCL 0.25% 30 ML VIAL As Ordered ONE; +ISOVUE-M 300 61% 15ML VIAL (Q9967) As Ordered ONE; +LIDOCAINE 1% SDV INJ 30 ML VIAL As Ordered ONE; +TRIAMCINOLONE ACETONIDE SUSP 40 MG/ML VIAL (J3301) As Ordered ONE; +diazePAM 5 MG TAB As Ordered ONE; +oxyCODONE 5MG TAB As Ordered ONE
--- NOTE | 2017-06-05 12:45 | REP ---
PARTIAL SI JOINT SERIES: Three views bilateral. HISTORY: Injection procedure for pain. 19 seconds of fluoroscopy time is reported. FINDINGS: A sequence of three last image hold fluoroscopic spot radiographs of the SI joints document bilateral needle positions and contrast injections associated with SI joint injection procedure. Signed by Karsten Jeronimo MD 06/05/2017 01:04 P
--- NOTE | 2017-06-21 01:16 | ECWPNPC ---
PATIENT NAME: DARLENE BARNETT : 1960 GENDER: FEMALE VISIT DATE: 06/05/2017 DISCHARGE DATE: 06/05/17 1226 VISIT LOCKED DATE TIME: PHYSICIAN: KULWINDER CABRERA RESOURCE: KULWINDER CABRERA REASON FOR APPOINTMENT 1. SIJ HISTORY OF PRESENT ILLNESS HISTORY OF PRESENT ILLNESS: PAIN THE PATIENT DESCRIBES THE PAIN... FALL RISK SCREENING: SCREENING :NO FALLS IN THE PAST YEAR CURRENT MEDICATIONS TAKING ALENDRONATE SODIUM 70 MG TABLET 1 TABLET ORALLY WEEKLY, NOTES: WEEK AGO TAKING CALCIUM 600 + D 600-200 MG-UNIT TABLET 1 TABLET WITH A MEAL ORALLY TWICE A DAY, NOTES: 06-04-17 TAKING LABETALOL HCL 200 MG TABLET 1 TABLET ORALLY TWICE A DAY, NOTES: 06-05-17744 TAKING LOSARTAN POTASSIUM 100 MG TABLET 1 TABLET ORALLY ONCE A DAY, NOTES: 06-05-17744 TAKING NICOTINE 14 MG/24HR PATCH 24 HOUR 1 PATCH TO SKIN TRANSDERMAL ONCE A DAY, NOTES: NONE TAKING VENTOLIN HFA 108 (90 BASE) MCG/ACT AEROSOL SOLUTION 2 PUFFS NEEDED INHALATION EVERY 4 HRS, NOTES: 06-05-17744 TAKING VITAMIN D3 1000 UNIT TABLET 2 TABLET ORALLY ONCE A DAY, NOTES: 06-04-17 TAKING MULTIVITAMIN ADULTS - TABLET 1 TAB ORALLY DAILY, NOTES: 06-04-17 TAKING LORATADINE 10 MG TABLET 1 TABLET ORALLY ONCE A DAY NEEDED, NOTES: NONE TAKING OMEPRAZOLE 40 MG CAPSULE DELAYED RELEASE 1 CAPSULE ORALLY ONCE A DAY, NOTES: 06-05-17744 TAKING TYLENOL EXTRA STRENGTH 500 MG TABLET 2 TABLETS NEEDED ORALLY TWICE A DAY NEEDED, NOTES: NONE TAKING INCRUSE ELLIPTA 62.5 MCG/INH AEROSOL POWDER BREATH ACTIVATED 1 PUFF INHALATION ONCE A DAY, NOTES: 06-05-17744 NOT-TAKING CELEXA 40 MG TABLET 0.5 TABLET ORALLY ONCE A DAY, NOTES: NOT STARTED YET DISCONTINUED HYDROXYZINE HCL 50 MG TABLET 2 TABLETS ORALLY BEFORE BEDTIME DISCONTINUED ADVAIR DISKUS 250-50 MCG/DOSE AEROSOL POWDER BREATH ACTIVATED 1 PUFF INHALATION DAILY MEDICATION LIST REVIEWED AND RECONCILED WITH THE PATIENT PAST MEDICAL HISTORY HYPERTENSION ASTHMA CIRRHOSIS OF LIVER ARTHRITIS NECK AND BACK PAIN ALLERGIES N.K.D.A. SURGICAL HISTORY TUBAL LIGATION 1982 EGD AND COLONOSCOPY 2016 SOCIAL HISTORY GENERAL: TOBACCO USE ARE YOU A:CURRENT SMOKER HOW MANY CIGARETTES A DAY DO YOU SMOKE?6-10 PATIENT COUNSELED ON THE DANGERS OF TOBACCO USE AND URGED TO QUIT:03/30/2017 PATIENT IS CURRENTLY TRYING TO QUIT AND IS WEARING NICOTINE PATCHES ARE YOU INTERESTED IN QUITTING?READY TO QUIT COUNSELED THE PATIENT ON TOBACCO USE, CESSATION [id number]/21/2017 CURRENTLY IN PROCESS OF QUITTING RECREATIONAL DRUG USE DRUG USE?NO SABIANIST [id number] AMISH LANGUAGE LANGUAGES SPOKEN:URDU LEARNING BARRIERS / SPECIAL NEEDS BARRIERS TO LEARNING?NO HEARING IMPAIRED?NO VISION IMPAIRED?YES GLASSES FOR READING COGNITIVELY IMPAIRED?NO READINESS TO LEARN?YES LEARNING PREFERENCES?NO LEARNING CAPABILITIES PRESENT?YES EMOTIONAL BARRIERS?NO SPECIAL DEVICES?NO GLOVE BOARDER NEEDED?NO PAIN CLINIC PFS, CLERGY, PUBLIC HEALTH REFERRALS PFS REFERRAL NEEDED?NO CLERGY REFERRAL NEEDED?NO PUBLIC HEALTH REFERRAL NEEDED?NO WAS THE PROVIDER NOTIFIED OF ANY PERTINENT INFO?NO HAS THE PATIENT BEEN EDUCATED REGARDING HIS/HER PLAN OF CARE?YES HAS THE PATIENT BEEN EDUCATED REGARDING PAIN, THE RISK FOR PAIN, THE IMPORTANCE OF EFFECTIVE PAIN MANAGEMENT, AND THE PAIN ASSESSMENT PROCESS?YES REVIEWED PROCEDURE WITH PATIENT AND FAMILY MEMBER PATIENT: ____. [facility] DIRECTIVES HEALTH CARE PROXY?NO WOULD YOU LIKE MORE INFORMATION?NO DO YOU HAVE A DNR?NO WOULD YOU LIKE MORE INFORMATION?NO LIVING WILL?NO WOULD YOU LIKE MORE INFORMATION?NO POWER OF SPECIALTY TRIMMER?NO WOULD YOU LIKE MORE INFORMATION?NO REVIEW OF SYSTEMS REVIEWED BY: PROVIDER: . CONSTITUTIONAL: ANY CHANGE IN YOUR MEDICAL CONDITION? NO . CHILLS NO . FEVER NO . INFECTION: DO YOU HAVE NEW INFECTIONS? NO . DO YOU HAVE HISTORY OF MRSA? NO . MUSCULOSKELETAL: ANY NEW PATTERNS OF PAIN OR NUMBNESS? NO . GASTROENTEROLOGY: ANY NEW CHANGE IN BOWEL CONTROL? NO . GENITOURINARY: ANY NEW CHANGE IN BLADDER CONTROL? NO . IS THERE A CHANCE YOU COULD BE ? NO . HEMATOLOGY/LYMPH: DO YOU TAKE ANY BLOOD THINNERS? (FOR EXAMPLE- COUMADIN, PLAVIX, AGGRENOX, PLATEL, PRADAXA, OR XARELTO) NO . WHEN WAS YOUR LAST DOSE? DATE: TIME: . NEUROLOGY: HAVE YOU FALLEN IN THE PAST 6 MONTHS? YES . ANY NEW EXTREMITY NUMBNESS OR WEAKNESS? NO . CARDIOLOGY: DO YOU HAVE A PACEMAKER OR DEFIBRILLATOR? NO . RESPIRATORY: HAVE YOU BEEN SICK IN THE PAST WEEK? NO . FEVER NO . FLU LIKE SYMPTOMS? NO . COUGH NO . INTEGUMENTARY: DO YOU HAVE ANY RASHES OR OPEN SORES? NO . ALLERGIC/IMMUNO: ARE YOU ALLERGIC TO SHELLFISH OR IV DYE? NO . ANY NEW ALLERGIES? NO . PSYCHIATRIC: DO YOU HAVE THOUGHTS OF HURTING YOURSELF OR SOMEONE ELSE? NO . ARE YOU ABUSED, NEGLECTED, OR IN AN UNSAFE ENVIRONMENT? NO . ENDOCRINOLOGY: ARE YOU DIABETIC? NO . OTHER: DO YOU NEED ANY PRESCRIPTIONS? NO . IF YES, PLEASE LIST: ____ . ANY NEW PROBLEMS WITH YOUR MEDICATIONS? NO . WHEN DID YOU LAST EAT? 06-04-17 4 PM . WHEN DID YOU LAST DRINK? 06-05-17 0745 . WHAT DID YOU LAST DRINK? APPLE JUICE . NAME OF PERSON DRIVING YOU HOME? [employer] . DO YOU HAVE ANY OTHER QUESTIONS OR CONCERNS NO . VITAL SIGNS WT 151.2 LBS, HT 51 IN, BMI 40.87 INDEX, BP 170/100 MM HG, REPEAT BP 158/92 MANUAL, HR 70 /MIN, RR 16 /MIN, TEMP 97.0 F, OXYGEN SAT % 98%, NA INITIALS TL 1027. ASSESSMENTS SACROILIITIS, NOT ELSEWHERE CLASSIFIED - M46.1 (PRIMARY) PROCEDURES PN SI PRE PROCEDURE DIAGNOSIS SACROILIITIS, SACROILIAC JOINT DYSFUNCTION POST PROCEDURE DIAGNOSIS SACROILIITIS, SACROILIAC JOINT DYSFUNCTION PROCEDURE BILATERAL SACROILIAC JOINT BLOCK SURGEON DR. KULWINDER CABRERA ORDER CLERK NONE ANESTHESIA LOCAL PRE PROCEDURE NOTE PATIENT WITH HISTORY OF CHRONIC LOW BACK PAIN. I EVALUATED THE PATIENT AND REVIEWED THE CHART. I WENT OVER THE RISKS, ALTERNATIVES, AND BENEFITS ASSOCIATED WITH THIS PROCEDURE. THE PATIENT WOULD LIKE TO PROCEED AND GAVE CONSENT TO PERFORM THE PROCEDURE. THE PATIENT DENIES UNEXPLAINABLE WEIGHT LOSS, FEVER, CHILLS, OR NEW CHANGES IN URINARY OR BOWEL CONTROL DESCRIPTION OF PROCEDURE THE PATIENT WAS BROUGHT TO THE PROCEDURE ROOM AND PLACED IN THE PRONE POSITION. THE LUMBOSACRAL AREA WAS CLEANED WITH CHLORAPREP SOLUTION AND DRAPED ASEPTICALLY. THE PROCEDURE WAS DONE UNDER STERILE CONDITIONS. I CHECKED LATERALITY AND THE LEVEL WHERE THE PROCEDURE WAS GOING TO BE PERFORMED WITH THE PATIENT AND THE SUPPORTING STAFF AT THE MOMENT OF THE TIME OUT IN THE PROCEDURE ROOM. UNDER FLUOROSCOPIC GUIDANCE, TARGET POINT WAS SELECTED AT THE LOWER BORDER OF THE RIGHT AND LEFT SACROILIAC JOINT. TARGET POINT WAS SELECTED AFTER MEDIAL ROTATION AND TILT OF THE MAGNIFIER OF THE C-ARM. LIDOCAINE WAS USED TO NUMB THE SKIN AND SUBCUTANEOUS TISSUE BELOW IT. A SPINAL NEEDLE, 22-GAUGE, WAS ADVANCED UNDER FLUOROSCOPIC GUIDANCE AND FOLLOWING PATIENT FEEDBACK UNTIL THE TARGET AREA WAS TOUCHED. THE POSITION OF THE NEEDLE WAS VERIFIED WITH AP AND LATERAL VIEWS. AFTER PROPER POSITION OF THE NEEDLE WAS ACHIEVED, ISOVUE M DYE 30%, 0.25 ML, WAS INJECTED SHOWING SPREAD OF THE DYE. THEN, A SOLUTION OF 20 MG OF KENALOG WAS INJECTED IN RIGHT JOINT WITH 3 ML OF BUPIVACAINE 0.125%. THERE WAS NO EVIDENCE OF BLOOD, PARESTHESIA OR CEREBROSPINAL FLUID DURING THE PROCEDURE. THE PATIENT WAS SENT TO THE RECOVERY ROOM. THE PATIENT WAS MOVING THE EXTREMITIES AND DOING WELL. THERE WAS NO COMPLICATION DURING THE PROCEDURE. FLUOROSCOPY TIME WAS 19 SECONDS POST PROCEDURE NOTE THE PATIENT WILL BE SEEN IN A FOLLOW UP IN THE NEXT FEW WEEKS. INSTRUCTIONS WERE GIVEN, QUESTIONS WERE ANSWERED, AND THE PATIENT EXPRESSED UNDERSTANDING AND AGREED WITH THE PLAN. I, MICAH FLEMING, DOCUMENTED THE ABOVE INFORMATION ACTING A SCRIBE FOR DR. CABRERA. I HAVE REVIEWED THE ABOVE DOCUMENT, WRITTEN BY MICAH BRAY AND I VERIFY THAT IT IS [facility] FLUORO GUIDANCE (PAIN)[id number] PROCEDURE CODES 69591 INJECT SACROILIAC JOINT, MODIFIERS: 50 [id number] RADXPS IN END [id number] PXD DISPOSITION & COMMUNICATION FOLLOW UP 3 WEEKS ELECTRONICALLY SIGNED BY KULWINDER CABRERA MD ON 06/20/2017 AT 10:10 PM EST DISCLAIMER : THIS IS A VISIT SUMMARY EXTRACTED FROM THE [employer] CHART. IT IS NOT A COPY OF THE [employer] PROGRESS NOTE. MTDD
== END ==
LOC: M PAIN 10:00
PROVIDERS: ATTEND Anesthesiology
DX: G89.29 Other chronic pain (principal); M46.1 Sacroiliitis, not elsewhere classified; I10 Essential (primary) hypertension; F17.210 Nicotine dependence, cigarettes, uncomplicated; Z79.899 Other long term (current) drug therapy
CPT/HCPCS: G0260; J3301; Q9967

== ENCOUNTER → 2017-10-23 | Outpatient (CLI) | payer OTHER | LOC: M RAD 08:50 | DX: K70.30 Alcoholic cirrhosis of liver without ascites (principal) | CPT/HCPCS: 76705 ==

== ENCOUNTER → 2018-01-12 | Outpatient (CLI) | payer OTHER ==
[2018-01-12 11:01] LABS: BASO % 0.4 % (0.0-1.0); EOS # 0.1 10^3/uL (0.0-0.50); EOS % 1.7 % (0.0-3.0); HEMOGLOBIN 15.1 g/dl (12.0-15.5); IMMATURE GRANULOCYTE % 0.1 % (0-3.0); LYMPH # 2.3 10^3/uL (1.5-4.5); LYMPH % 32.8 % (24.0-44.0); MEAN CORPUSCULAR HEMOGLOBIN 34.1 pg (27.0-33.0); MEAN CORPUSCULAR VOLUME 94.8 fl (80.0-96.0); MONO # 0.6 10^3/uL (0.0-0.8); MONO % 8.7 % (0.0-5.0); NEUTROPHILS # 3.9 10^3/uL (1.8-7.7); NEUTROPHILS % 56.3 % (36.0-66.0); PLATELET COUNT, AUTOMATED 151 10^3/uL (150-450); RED BLOOD COUNT 4.43 10^6/uL (4.00-5.40); RED CELL DISTRIBUTION WIDTH 11.8 % (11.5-14.5); WHITE BLOOD COUNT 6.9 10^3/uL (4.0-10.0)
[2018-01-12 11:21] LABS: ERYTHROCYTE SEDIMENTATION RATE 5 mm/hr (0-30)
[2018-01-12 11:38] LABS: ALBUMIN 4.2 GM/DL (3.2-5.2); ALBUMIN/GLOBULIN RATIO 1.14 (1.00-1.93); ALKALINE PHOSPHATASE 126 U/L (45-117); ALT/SGPT 24 U/L (12-78); ANION GAP 9 MEQ/L (8-16); AST/SGOT 34 U/L (7-37); BLOOD UREA NITROGEN 10 MG/DL (7-18); CALCIUM LEVEL 9.1 MG/DL (8.5-10.1); CARBON DIOXIDE LEVEL 26 MEQ/L (21-32); CHLORIDE LEVEL 94 MEQ/L (98-107); GLOMERULAR FILTRATION RATE > 60.0 (>51); GLUCOSE, FASTING 93 MG/DL (70-100); POTASSIUM SERUM 4.9 MEQ/L (3.5-5.1); SODIUM LEVEL 129 MEQ/L (136-145); TOTAL PROTEIN 7.9 GM/DL (6.4-8.2)
[2018-01-13 14:17] LABS: ANTI DOUBLE STRAND-DNA AB 19 IU/mL (0-9); ANTINUCLEAR ANTIBODIES DIRECT Positive (Negative); RNP ANTIBODIES <0.2 AI (0.0-0.9); SJOGREN'S ANTI SS-A <0.2 AI (0.0-0.9); SJOGREN'S ANTI SS-B <0.2 AI (0.0-0.9); SMITH ANTIBODIES <0.2 AI (0.0-0.9)
== END ==
LOC: M LAB 10:19
DX: R55 Syncope and collapse (principal)
CPT/HCPCS: 84443

== ENCOUNTER 2019-06-24 09:59 | Day surgery (SDC) | payer OTHER ==
[~2019-06-24] VITALS: Ht 160 cm; Wt 71.2 kg
[~2019-06-24 09:59] MED LIST changes: +ACET500T15 PO; -ACET50TAOT PO; +ADVI1CAP2 PO; -ADVI200C PO; +ALBU8.5H IH; +BREO1INH3 PO; -BUPIVACAINE HCL 0.25% 30 ML VIAL As Ordered ONE; +CALCCAP4 PO; +CBD OIL SL; +FOLI1TAB11 PO; -FOLI1TAB4 PO; -ISOVUE-M 300 61% 15ML VIAL (Q9967) As Ordered ONE; +KEPP1TAB PO; +LACT10SO7 PO; -LACT20EL PO; -LIDOCAINE 1% SDV INJ 30 ML VIAL As Ordered ONE; +LIDOCAINE 2% INJ 100 MG/5 ML SDV (FOR ANES.) As Ordered ONE; +LORA-622 PO; -LORA10TA2 PO; +LORA10TA3 PO; -LOSA100T36 PO; +LOSA100T50 PO; +LOSA50TA88 PO; +MELA10CA PO; +METO1TAB63 PO; -METO25TAB PO; +MILK120011 PO; -MILKSUS PO; +MULTTAB61 PO; +NORV5TAB PO; +NS 1,000 ML IV ONE; +OMEP-172 PO; -OMEP40CA2 PO; +OMEP40CA97 PO; -PANT40TA2 PO; +PANT40TA3 PO; -PROP1TAB29 PO; +PROP20TA72 PO; +PROPOFOL 200 MG/20 ML VIAL As Ordered ONE; +SERT-141 PO; -SERT50TA PO; +TRAZ1TAB10 PO; -TRAZO50TA PO; -TRIAMCINOLONE ACETONIDE SUSP 40 MG/ML VIAL (J3301) As Ordered ONE; -diazePAM 5 MG TAB As Ordered ONE; -oxyCODONE 5MG TAB As Ordered ONE
[2019-06-24] MEDS ORDERED: fentaNYL 100 MCG/2 ML INJECTION (J3010) As Ordered ONE (11:09)
--- NOTE | 2019-06-24 11:22 | ROOR ---
Patient Name: Tracy Frey Procedure Date: 06/24/2019 10:49 AM Date of : 1960 Age: 58 Room: [facility] Gender: Female Note Status: Finalized Procedure: Upper GI endoscopy Indications: Cirrhosis rule out esophageal varices Providers: Beau AMOS MD Referring MD: FRANCISCO JAVIER Naranjo Requesting Provider: Medicines: Monitored Anesthesia Care Complications: No immediate complications. Procedure: Pre-Anesthesia Assessment: - The heart rate, respiratory rate, oxygen saturations, blood pressure, adequacy of pulmonary ventilation, and response to care were monitored throughout the procedure. The Endoscope was introduced through the mouth, and advanced to the second part of duodenum. The upper GI endoscopy was accomplished without difficulty. The patient tolerated the procedure well. Findings: The examined esophagus was normal. A medium-sized hiatal hernia was present. The entire examined stomach was normal. The examined duodenum was normal. Impression: - Normal esophagus. - Medium-sized hiatal hernia. - Normal stomach. - Normal examined duodenum. - No specimens collected. Recommendation: - Observe patient's clinical course. - Return to referring physician as previously scheduled. Beau Amos MD Beau AMOS MD 06/24/2019 11:22:23 AM Electronically signed by Beau AMOS MD Number of Addenda: 0 Note Initiated On: 06/24/2019 10:49 AM Estimated Blood Loss: Estimated blood loss: none.
--- NOTE | 2019-06-24 11:24 | ROOR ---
Patient Name: Tracy Frey Procedure Date: 06/24/2019 10:50 AM Date of : 1960 Age: 58 Room: [facility] Gender: Female Note Status: Finalized Procedure: Colonoscopy Indications: High risk colon cancer surveillance: Personal history of colonic polyps, Last colonoscopy: January 2016 Providers: Beau AMOS MD Referring MD: FRANCISCO JAVIER Naranjo Requesting Provider: Medicines: Monitored Anesthesia Care Complications: No immediate complications. Procedure: Pre-Anesthesia Assessment: - The heart rate, respiratory rate, oxygen saturations, blood pressure, adequacy of pulmonary ventilation, and response to care were monitored throughout the procedure. The Colonoscope was introduced through the anus and advanced to the cecum, identified by appendiceal orifice and ileocecal valve. The colonoscopy was performed without difficulty. The patient tolerated the procedure well. The quality of the bowel preparation was good. Findings: The perianal and digital rectal examinations were normal. Two sessile polyps were found in the recto-sigmoid colon and descending colon. The polyps were 4 to 5 mm in size. These polyps were removed with a cold snare. Resection and retrieval were complete. Mild sigmoid diverticulosis and small internal hemorrhoids. The exam was otherwise without abnormality on direct and retroflexion views. Impression: - Two 4 to 5 mm polyps at the recto-sigmoid colon and in the descending colon, removed with a cold snare. Resected and retrieved. - Mild sigmoid diverticulosis and small internal hemorrhoids. - The examination was otherwise normal on direct and retroflexion views. Recommendation: - Repeat colonoscopy in 5 years for surveillance. Beau Amos MD Beau AMOS MD 06/24/2019 11:24:15 AM Electronically signed by Beau AMOS MD Number of Addenda: 0 Note Initiated On: 06/24/2019 10:50 AM Estimated Blood Loss: Estimated blood loss: none.
[2019-06-24 11:40] VITALS: BP 119/83
== END 2019-06-24 11:52 | disposition home or self-care (01) ==
LOC: M OPP 09:59
PROVIDERS: ATTEND Internal Medicine Gastroenterology
DX: Z12.11 Encounter for screening for malignant neoplasm of colon (principal); Z86.010 Personal history of colon polyps; D12.7 Benign neoplasm of rectosigmoid junction; D12.4 Benign neoplasm of descending colon; K57.30 Diverticulosis of large intestine without perforation or abscess without bleeding; K64.8 Other hemorrhoids; K44.9 Diaphragmatic hernia without obstruction or gangrene; K74.60 Unspecified cirrhosis of liver; F17.210 Nicotine dependence, cigarettes, uncomplicated; Z79.899 Other long term (current) drug therapy
CPT/HCPCS: 43235; 45385; 88305; J3010

== ENCOUNTER → 2021-03-22 | Outpatient (CLI) | payer OTHER ==
[~2021-03-22] MED LIST changes: -LIDOCAINE 2% INJ 100 MG/5 ML SDV (FOR ANES.) As Ordered ONE; +LISI10TA22 PO; -LISI10TA4 PO; -NS 1,000 ML IV ONE; -OMEP-172 PO; +OMEP1CAP73 PO; +OMEP40CA4 PO; -OMEP40CA97 PO; +PANT40TA29 PO; -PANT40TA3 PO; -PROPOFOL 200 MG/20 ML VIAL As Ordered ONE
[2021-03-22 15:48] LABS: FREE T4 1.27 NG/DL (0.76-1.46); THYROID STIMULATING HORMONE 2.68 uIU/ML (0.358-3.740)
== END ==
LOC: M LAB 14:05
PROVIDERS: ATTEND Internal Medicine Gastroenterology
DX: R19.7 Diarrhea, unspecified (principal)

== ENCOUNTER → 2021-03-24 | Outpatient (REF) | payer OTHER ==
[2021-03-30 16:09] LABS: CALPROTECTIN STOOL 22 ug/g (0-120); PANCREATIC ELASTASE STOOL 90 (>200)
== END ==
LOC: M LAB REF 10:48
PROVIDERS: ATTEND Internal Medicine Gastroenterology
DX: R19.7 Diarrhea, unspecified (principal)

== ENCOUNTER → 2023-05-11 | Outpatient (REF) | payer OTHER ==
[~2023-05-11] MED LIST changes: +ALEN70TA87 PO; -FOSA70TA PO; +LOSA100T46 PO; -LOSA100T50 PO; +LOSA50TA28 PO; -LOSA50TA88 PO
== END ==
LOC: M LAB REF 12:33
PROVIDERS: ATTEND Internal Medicine Gastroenterology
DX: R19.7 Diarrhea, unspecified (principal)